=== PATIENT | female | born 1945 | race Two or more races ===

== ENCOUNTER 2017-12-07 15:59 | Inpatient (IN) | payer OTHER ==
[~2017-12-07] VITALS: Ht 160 cm; Wt 50.8 kg
== END 2017-12-17 13:05 | disposition home or self-care (01) | DRG 603 ==
LOC: MEDJ 15:59
PROC: 8E0ZXY6 Isolation (ICD-10-PCS; principal; 2017-12-07)
PROC: 05H633Z Insertion of Infusion Device into Left Subclavian Vein, Percutaneous Approach (ICD-10-PCS; 2017-12-08)
DX: L02.01 Cutaneous abscess of face (principal); L03.211 Cellulitis of face; C91.10 Chronic lymphocytic leukemia of B-cell type not having achieved remission; D80.1 Nonfamilial hypogammaglobulinemia; T20.16XA Burn of first degree of forehead and cheek, initial encounter; T31.0 Burns involving less than 10% of body surface; X10.2XXA Contact with fats and cooking oils, initial encounter; Y93.89 Activity, other specified; Y92.89 Other specified places as the place of occurrence of the external cause; Y99.8 Other external cause status; I10 Essential (primary) hypertension; E03.8 Other specified hypothyroidism; B95.62 Methicillin resistant Staphylococcus aureus infection as the cause of diseases classified elsewhere; J47.9 Bronchiectasis, uncomplicated; R91.8 Other nonspecific abnormal finding of lung field; M81.0 Age-related osteoporosis without current pathological fracture

== ENCOUNTER 2021-03-24 16:35 | Inpatient (IN) | payer OTHER ==
[~2021-03-24] VITALS: Ht 157.5 cm; Wt 59.0 kg
[2021-03-24] MEDS ORDERED: IMBRUVICA140 MG PO (16:39)
[2021-03-24] MEDS ORDERED: VENCLEXTA STAR1 EACH PO (16:39)
[2021-03-24] MEDS ORDERED: NORVASC5 MG PO (16:39)
[2021-03-27] MEDS ORDERED: ELIQUIS2.5 MG PO (14:08)
== END 2021-03-27 18:26 | DRG 482 ==
LOC: ER 16:35 → SURH 20:33
PROVIDERS: ADMIT Orthopaedic Surgery; ATTEND Orthopaedic Surgery
PROC: 0QS736Z Reposition Left Upper Femur with Intramedullary Internal Fixation Device, Percutaneous Approach (ICD-10-PCS; principal; 2021-03-25 13:00)
DX: S72.142A Displaced intertrochanteric fracture of left femur, initial encounter for closed fracture (principal); W18.39XA Other fall on same level, initial encounter; M81.8 Other osteoporosis without current pathological fracture; E03.8 Other specified hypothyroidism

== ENCOUNTER 2023-02-26 11:04 | Inpatient (IN) | payer OTHER ==
[~2023-02-26] VITALS: Ht 154.9 cm; Wt 49.4 kg
[~2023-02-26 11:04] MED LIST: ELIQUIS2.5 MG PO; IMBRUVICA140 MG PO; NORVASC5 MG PO; VENCLEXTA STAR1 EACH PO
[2023-03-01] MEDS ORDERED: MONTELUKAST SOD10 MG (08:06)
[2023-03-01] MEDS ORDERED: BREO ELLIPTA 21 EACH (08:06)
[2023-03-01] MEDS ORDERED: ALLOPURINOL300 MG (08:06)
[2023-03-01] MEDS ORDERED: ALENDRONATE SOD70 MG (08:06)
[2023-03-01] MEDS ORDERED: VALACYCLOVIR500 MG (08:07)
[2023-03-01] MEDS ORDERED: SYNTHROID88 MCG (08:07)
== END 2023-03-06 12:49 | disposition home or self-care (01) | DRG 193 ==
LOC: ER 11:04 → SURH 19:23
PROVIDERS: General Practice; Internal Medicine Hematology & Oncology; ADMIT Internal Medicine; ATTEND Internal Medicine
PROC: BW24ZZZ Computerized Tomography (CT Scan) of Chest and Abdomen (ICD-10-PCS; principal; 2023-02-26)
PROC: 3E0F7SF Introduction of Other Gas into Respiratory Tract, Via Natural or Artificial Opening (ICD-10-PCS; 2023-02-26)
PROC: B24BYZZ Ultrasonography of Heart with Aorta using Other Contrast (ICD-10-PCS; 2023-02-27)
DX: J18.0 Bronchopneumonia, unspecified organism (principal); I21.A1 Myocardial infarction type 2; N17.9 Acute kidney failure, unspecified; D84.81 Immunodeficiency due to conditions classified elsewhere; C91.10 Chronic lymphocytic leukemia of B-cell type not having achieved remission; U09.9 Post COVID-19 condition, unspecified; D64.81 Anemia due to antineoplastic chemotherapy; M81.0 Age-related osteoporosis without current pathological fracture; J47.9 Bronchiectasis, uncomplicated

== ENCOUNTER 2023-05-17 17:54 | Inpatient (IN) | payer OTHER ==
[~2023-05-17] VITALS: Ht 157.5 cm; Wt 54.4 kg
[~2023-05-17 17:54] MED LIST changes: +ALENDRONATE SOD70 MG; +ALLOPURINOL300 MG; +BREO ELLIPTA 21 EACH; +MONTELUKAST SOD10 MG; +SYNTHROID88 MCG; +VALACYCLOVIR500 MG
[2023-05-17 19:00] LABS: HEMATOCRIT 33.7 % (36.0-45.00); HEMOGLOBIN 11.5 g/dL (12.0-15.00); MEAN CELL VOLUME 98.6 fL (80.00-100.00); MEAN CORPUSCULAR HEMOGLOBIN 33.7 pg (27.00-32.0); MEAN CORPUSCULAR HGB CONC 34.2 g/dl (32.0-36.0); PLATELET COUNT 233 K/uL (150-450); RED BLOOD COUNT 3.42 M/uL (4.00-6.00)
[2023-05-17 19:03] LABS: RED CELL DISTRIBUTION WIDTH 17.5 % (11.5-14.5)
[2023-05-17 19:16] LABS: ALBUMIN 2.6 gm/dL (3.4-5.0); BILIRUBIN TOTAL 0.88 mg/dL (0.3-1.2); CALCIUM 8.1 mg/dL (8.5-10.1); CREATININE SERUM 1.69 mg/dL (0.55-1.02); GFR 29.27; GLOBULINA 3.6 G/DL (2.4-3.5); POTASSIUM 3.17 mEq/L (3.5-5.1); TOTAL PROTEIN 6.2 gm/dL (6.4-8.2)
[2023-05-17 19:17] LABS: INR 1.14; PROTHROMBIN TIME 11.9 SECONDS (9.0-11.5)
[2023-05-17 19:20] LABS: PARTIAL THROMBOPLASTIN TIME 42.6 SECONDS (22.0-34.0)
[2023-05-17 20:41] LABS: ABG PH 7.434 (7.35-7.45); ABG pCO2 21.7 mmHg (35-45)
[2023-05-17 20:42] LABS: ABG PO2 50.4 mmHg (80-100); BASE EXCESS -7.6 mmol/l; BICARBONATE 14.2 mmol/l (23-25); SaO2 85.9 %; Tco2 14.9 mmol/l; allen test SATISFACTORY; o2 21 %; puncture site BRADIAL RIGHT
[2023-05-17 22:02] LABS: PH,URINE 5.5 (5.0-8.0); URINE APPEARANCE Cloudy; URINE BILIRRUBIN Negative (NEGATIVE); URINE BLOOD Small; URINE COLOR Yellow; URINE GLUCOSE Negative (NEGATIVE); URINE LEUKOCYTE Trace; URINE NITRATE Negative; URINE UROBILINOGEN 0.2 E.U./dl
[2023-05-17 22:05] LABS: URINE BACTERIA 351.5 uL (0.0-1933); URINE EPITHELIAL CELLS 104.3 uL (0.0-38.8); URINE RBC 8.7 uL (0.0-20.8); URINE WBC 14.3 uL (0.0-23.2)
[2023-05-17 22:20] LABS: URINE PROTEIN 100 (NEGATIVE)
[2023-05-17 23:09] LABS: ABG PH 7.426 (7.35-7.45); ABG PO2 81.8 mmHg (80-100); ABG pCO2 26.3 mmHg (35-45)
[2023-05-17 23:10] LABS: BASE EXCESS -5.6 mmol/l; BICARBONATE 16.9 mmol/l (23-25); SaO2 96.1 %; Tco2 17.7 mmol/l; allen test SATISFACTORY; o2 100 %; puncture site BRADIAL RIGHT
[2023-05-18 00:08] LABS: MAGNESIUM 1.6 mg/dL (1.8-2.4); PHOSPHOROUS 3.3 mg/dL (2.5-4.9)
[2023-05-18 00:20] LABS: FIBRINOGEN > 860 mg/dL (187.0-446.0)
[2023-05-19 07:07] LABS: ALBUMIN 2.4 gm/dL (3.4-5.0); BILIRUBIN TOTAL 0.54 mg/dL (0.3-1.2); CALCIUM 7.7 mg/dL (8.5-10.1); CREATININE SERUM 1.2 mg/dL (0.55-1.02); GFR 43.45; TOTAL PROTEIN 6.4 gm/dL (6.4-8.2)
[2023-05-19 08:25] LABS: POTASSIUM 2.59 mEq/L (3.5-5.1)
[2023-05-20 14:13] LABS: ALBUMIN 2.1 gm/dL (3.4-5.0); BILIRUBIN TOTAL 0.4 mg/dL (0.3-1.2); CALCIUM 7.5 mg/dL (8.5-10.1); CREATININE SERUM 0.91 mg/dL (0.55-1.02); GFR 59.79; GLOBULINA 2.9 G/DL (2.4-3.5); POTASSIUM 3.02 mEq/L (3.5-5.1)
[2023-05-20 20:23] LABS: ABG PH 7.433 (7.35-7.45); ABG PO2 73.5 mmHg (80-100); ABG pCO2 23.3 mmHg (35-45); BASE EXCESS -6.8 mmol/l; BICARBONATE 15.2 mmol/l (23-25); SaO2 94.8 %
[2023-05-20 20:24] LABS: Tco2 15.9 mmol/l; allen test SATISFACTORY; o2 21 %; puncture site RADIAL LEFT
[2023-05-21 06:29] LABS: HEMATOCRIT 30.4 % (36.0-45.00); HEMOGLOBIN 10.1 g/dL (12.0-15.00); MEAN CELL VOLUME 98.7 fL (80.00-100.00); MEAN CORPUSCULAR HGB CONC 33.4 g/dl (32.0-36.0); PLATELET COUNT 225 K/uL (150-450); RED BLOOD COUNT 3.08 M/uL (4.00-6.00); RED CELL DISTRIBUTION WIDTH 17.6 % (11.5-14.5)
[2023-05-21 07:00] LABS: ALBUMIN 2.3 gm/dL (3.4-5.0); BILIRUBIN TOTAL 0.45 mg/dL (0.3-1.2); CALCIUM 7.7 mg/dL (8.5-10.1); CREATININE SERUM 0.77 mg/dL (0.55-1.02); GFR 72.5; GLOBULINA 2.5 G/DL (2.4-3.5); TOTAL PROTEIN 4.8 gm/dL (6.4-8.2)
[2023-05-21 07:19] LABS: POTASSIUM 2.95 mEq/L (3.5-5.1)
[2023-05-21 14:12] LABS: CALCIUM 8.1 mg/dL (8.5-10.1); MAGNESIUM 1.9 mg/dL (1.8-2.4)
[2023-05-21 14:29] LABS: PHOSPHOROUS 1.7 mg/dL (2.5-4.9)
[2023-05-21 14:30] LABS: ALBUMIN 2.4 gm/dL (3.4-5.0); BILIRUBIN TOTAL 0.43 mg/dL (0.3-1.2); CREATININE SERUM 0.82 mg/dL (0.55-1.02); GFR 67.42; GLOBULINA 2.8 G/DL (2.4-3.5); TOTAL PROTEIN 5.2 gm/dL (6.4-8.2)
[2023-05-22 16:01] LABS: ALBUMIN 2.5 gm/dL (3.4-5.0); BILIRUBIN TOTAL 0.47 mg/dL (0.3-1.2); CALCIUM 8.2 mg/dL (8.5-10.1); CREATININE SERUM 0.76 mg/dL (0.55-1.02); GFR 73.6; GLOBULINA 2.9 G/DL (2.4-3.5); POTASSIUM 3.68 mEq/L (3.5-5.1); TOTAL PROTEIN 5.4 gm/dL (6.4-8.2)
[2023-05-23 08:00] LABS: HEMOGLOBIN 11.7 g/dL (12.0-15.00); MEAN CELL VOLUME 99.2 fL (80.00-100.00); MEAN CORPUSCULAR HEMOGLOBIN 33.1 pg (27.00-32.0); MEAN CORPUSCULAR HGB CONC 33.4 g/dl (32.0-36.0); PLATELET COUNT 330 K/uL (150-450); RED BLOOD COUNT 3.52 M/uL (4.00-6.00)
[2023-05-23 09:46] LABS: ALBUMIN 2.3 gm/dL (3.4-5.0); BILIRUBIN TOTAL 0.39 mg/dL (0.3-1.2); CALCIUM 8.7 mg/dL (8.5-10.1); CREATININE SERUM 0.87 mg/dL (0.55-1.02); GFR 62.97; GLOBULINA 2.8 G/DL (2.4-3.5); MAGNESIUM 1.9 mg/dL (1.8-2.4); POTASSIUM 3.8 mEq/L (3.5-5.1); TOTAL PROTEIN 5.1 gm/dL (6.4-8.2)
[2023-05-24 07:16] LABS: HEMATOCRIT 33.7 % (36.0-45.00); HEMOGLOBIN 11.2 g/dL (12.0-15.00); MEAN CELL VOLUME 99.1 fL (80.00-100.00); MEAN CORPUSCULAR HEMOGLOBIN 32.9 pg (27.00-32.0); MEAN CORPUSCULAR HGB CONC 33.1 g/dl (32.0-36.0); PLATELET COUNT 295 K/uL (150-450); RED CELL DISTRIBUTION WIDTH 17.8 % (11.5-14.5)
[2023-05-24 07:37] LABS: ALBUMIN 2.3 gm/dL (3.4-5.0); BILIRUBIN TOTAL 0.39 mg/dL (0.3-1.2); CALCIUM 8.8 mg/dL (8.5-10.1); CREATININE SERUM 0.82 mg/dL (0.55-1.02); GFR 67.42; GLOBULINA 2.4 G/DL (2.4-3.5); POTASSIUM 4.63 mEq/L (3.5-5.1); TOTAL PROTEIN 4.7 gm/dL (6.4-8.2)
== END 2023-05-27 11:08 | disposition home or self-care (01) | DRG 871 ==
LOC: ER 17:54 → ICU-2 21:55 → ICU 05-20 23:08 → SURH 05-21 19:21
PROVIDERS: General Practice; Internal Medicine; Internal Medicine Nephrology; Specialist; Student in an Organized Health Care Education/Training Program; ADMIT Internal Medicine; ATTEND Internal Medicine
PROC: 4A12X4Z Monitoring of Cardiac Electrical Activity, External Approach (ICD-10-PCS; 2023-05-17)
PROC: BB24ZZZ Computerized Tomography (CT Scan) of Bilateral Lungs (ICD-10-PCS; 2023-05-17)
PROC: 0T9B70Z Drainage of Bladder with Drainage Device, Via Natural or Artificial Opening (ICD-10-PCS; 2023-05-17)
PROC: 3E0F7GC Introduction of Other Therapeutic Substance into Respiratory Tract, Via Natural or Artificial Opening (ICD-10-PCS; 2023-05-17)
PROC: 3E0F7SF Introduction of Other Gas into Respiratory Tract, Via Natural or Artificial Opening (ICD-10-PCS; 2023-05-17)
PROC: B246ZZZ Ultrasonography of Right and Left Heart (ICD-10-PCS; 2023-05-18)
PROC: 02HV33Z Insertion of Infusion Device into Superior Vena Cava, Percutaneous Approach (ICD-10-PCS; 2023-05-19)
PROC: 0TPBX0Z Removal of Drainage Device from Bladder, External Approach (ICD-10-PCS; principal; 2023-05-23)
DX: A41.9 Sepsis, unspecified organism (principal); I21.A1 Myocardial infarction type 2; J18.1 Lobar pneumonia, unspecified organism; R65.21 Severe sepsis with septic shock; J96.01 Acute respiratory failure with hypoxia; E87.20 Acidosis, unspecified; C91.11 Chronic lymphocytic leukemia of B-cell type in remission; E87.0 Hyperosmolality and hypernatremia; E87.6 Hypokalemia; R60.0 Localized edema; I12.9 Hypertensive chronic kidney disease with stage 1 through stage 4 chronic kidney disease, or unspecified chronic kidney disease; N18.9 Chronic kidney disease, unspecified; E03.9 Hypothyroidism, unspecified; Z74.01 Bed confinement status; Z86.16 Personal history of COVID-19

== ENCOUNTER 2023-06-02 10:14 | Outpatient (CLI) | payer OTHER | END 2023-06-02 10:25 | disposition home or self-care (01) | LOC: RAD 10:14 | PROVIDERS: ATTEND Otolaryngology | DX: R05.9 Cough, unspecified (principal); I73.9 Peripheral vascular disease, unspecified; J18.9 Pneumonia, unspecified organism; Z88.6 Allergy status to analgesic agent; Z88.1 Allergy status to other antibiotic agents; Z88.5 Allergy status to narcotic agent; Z88.8 Allergy status to other drugs, medicaments and biological substances ==

== ENCOUNTER 2023-09-07 07:13 | Outpatient (CLI) | payer OTHER | END 2023-09-07 07:14 | disposition home or self-care (01) | LOC: NUCLEAR 07:13 | PROVIDERS: ATTEND Internal Medicine | DX: I20.9 Angina pectoris, unspecified (principal); I11.9 Hypertensive heart disease without heart failure | CPT/HCPCS: 78452; 93017; A9500 ==

== ENCOUNTER 2024-05-11 12:31 | Outpatient (CLI) | payer OTHER | END 2024-05-11 12:42 | disposition home or self-care (01) | LOC: RAD 12:31 | DX: R05.1 Acute cough (principal); R53.83 Other fatigue ==